=== PATIENT | male | born 1940 | race Caucasian/White ===

== ENCOUNTER → 2021-04-18 07:39 | Outpatient (CLI) | payer MEDICARE, BC, SELFPAY ==
--- NOTE | 2021-04-18 | DI.ECHO.S_ITS ---
[facility] +---------+ [facility] +---------+ : : [address] : [place] : : : : [id number] : : : : Phone: [phone]+ Echocardiogram Report + + :Name: JUANA FELDMAN Study Date: 04/18/2021 Height: 71 in : :[facility] ReadingLocation: Weight: 190 lb : : Gender: Male BSA: 2.1 m2 : :: 1940 Age: 80 yrs BP: 165/87 mmHg: :Reason For Study: ATHEROSCLEROTIC HEART DISEASE : :Ordering Physician: MARANDA THOMAS Performed By: Malgorzata Arguello : :Referring: MARANDA THOMAS : + + Interpretation Summary The left ventricle is normal in size. Left ventricular systolic function is normal. The ejection fraction is estimated to be 55-60%. There is possible anterolateral hypokinesis. Diastolic parameters suggest probable normal left ventricular diastolic function and normal filling pressures. The right ventricle is normal in size and function. Pulmonary artery pressures cannot be estimated because of the lack of a measurable TR jet velocity. The left atrium is moderately dilated. Right atrial size is normal. The aortic root is mildly dilated. The ascending aorta is moderate-severely enlarged. There is no significant valvular heart disease. Procedure: A two-dimensional transthoracic echocardiogram with color flow and Doppler was performed. The study quality was technically adequate. There is no prior echocardiogram noted for this patient. The patient was in sinus bradycardia with heart rates between 50-62 bpm during the exam. Left Ventricle: The left ventricle is normal in size. There is mild concentric left ventricular hypertrophy. Left ventricular systolic function is normal. The ejection fraction is estimated to be 55-60%. There is possible anterolateral hypokinesis. Diastolic parameters suggest probable normal left ventricular diastolic function and normal filling pressures. Right Ventricle: The right ventricle is normal in size and function. Atria: The left atrium is moderately dilated. Right atrial size is normal. There is no Doppler evidence for an interatrial shunt. Mitral Valve: The mitral valve leaflets appear mildly thickened, but open well. There is trace mitral regurgitation. Aortic Valve: The aortic valve is trileaflet. The aortic valve opens well. There is no aortic valve stenosis. No aortic regurgitation is present. Tricuspid Valve: The tricuspid valve is normal in structure and function. There is trace tricuspid regurgitation. Pulmonary artery pressures cannot be estimated because of the lack of a measurable TR jet velocity. Pulmonic Valve: The pulmonic valve is not well visualized. There is no pulmonic valvular regurgitation. There is no significant valvular heart disease. Great Vessels: The aortic root is mildly dilated. The ascending aorta is moderate-severely enlarged. The inferior vena cava was not visualized. Pericardium/ Pleura There is no pericardial effusion. There is no pleural effusion. MMode/2D Measurements & Calculations LVIDd: 4.7 cm LVOT diam: 2.3 cm LVIDs: 3.0 cm Ao root diam: 4.1 cm FS: 37.1 % asc Aorta Diam: 4.9 cm IVSd: 1.3 cm Ao Arch Diam (Prox Trans): 2.7 cm LVPWd: 1.2 cm LV dozier. diameter/BSA (cm/m^2): 2.3 LV sys. diameter/BSA (cm/m^2): 1.4 LA A2 area: 25.3 cm2 RA long axis: 5.2 cm LA A4 area: 19.3 cm2 RA area: 19.0 cm2 LA length (vol): 4.9 cm RA vol: 58.9 ml LA vol: 84.5 ml RA : 28.5 ml/m2 LA vol index: 41.0 ml/m2 RVD1 (basal): 3.6 cm TAPSE: 2.4 cm Doppler Measurements & Calculations Ao V2 max: 132.2 cm/sec LVOT Max Bala: 113.1 cm/sec Ao V2 mean: 85.0 cm/sec LV V1 max P.1 mmHg Ao max P.0 mmHg LV V1 VTI: 26.0 cm Ao mean P.5 mmHg TRACEY(I,D): 4.1 cm2 Ao V2 VTI: 27.2 cm TRACEY(V,D): 3.6 cm2 sev ratio: 0.96 TRACEY indexed to BSA (cm^2/m^2): 2.0 MV E max bala: 80.8 cm/sec PA V2 max: 83.3 cm/sec MV A max bala: 68.9 cm/sec PA V2 mean: 58.8 cm/sec MV E/A: 1.2 PA mean P.5 mmHg Med Peak E' Bala: 6.2 cm/sec PA pr(Accel): 19.1 mmHg E/E' med: 12.9 Lat Peak E' Bala: 6.4 cm/sec E/E' lat: 12.6 E/e' average: 12.8 MV dec time: 0.27 sec SV(LVOT): 110.8 ml Reading Physician:04:12 PM
== END ==
PROVIDERS: PCP Family Medicine; Referring Provider Family Medicine; Visit Provider Family Medicine
DX: I77.810 Thoracic aortic ectasia (principal); I77.89 Other specified disorders of arteries and arterioles; I25.10 Atherosclerotic heart disease of native coronary artery without angina pectoris; I10 Essential (primary) hypertension
CPT/HCPCS: 93306

== ENCOUNTER → 2021-11-14 11:10 | Outpatient (CLI) | payer MEDICARE, BC, SELFPAY ==
[2021-11-14 12:29] LABS: Alanine Aminotransferase 14 IU/L (<50); Albumin Globulin Ratio 1.5 (1.0-2.8); Alkaline Phosphatase 77 U/L (38-126); Aspartate Aminotransferase 26 IU/L (17-59); Bilirubin Total 0.8 mg/dL (0.2-1.3); Blood Urea Nitrogen 18 mg/dL (9-20); Calcium 9.5 mg/dL (8.4-10.2); Carbon Dioxide 30 mmol/L (22-32); Chloride 105 mmol/L (98-107); Cholesterol 174 mg/dL (140-199); Estimated Glomerular Filt Rate > 60.0 mL/min (>60); Globulin 2.6 g/dL (1.7-4.1); Glucose 91 mg/dL (80-110); HDL Cholesterol 57 mg/dL (40-60); HEMOLYSIS < 15 (0-50); LDL Cholesterol Calculated 104 mg/dL (<100); Potassium 4.3 mmol/L (3.4-5.1); Sodium 139 mmol/L (137-145); Total Protein 6.6 g/dL (6.3-8.2); Triglycerides 67 mg/dL (35-150)
== END ==
PROVIDERS: PCP Internal Medicine; Referring Provider Internal Medicine; Visit Provider Internal Medicine
DX: I10 Essential (primary) hypertension (principal); E78.2 Mixed hyperlipidemia
CPT/HCPCS: 36415; 80053; 80061

== ENCOUNTER → 2022-04-09 12:48 | Outpatient (CLI) | payer MEDICARE, BC, SELFPAY ==
--- NOTE | 2022-04-09 12:49 | DI.ECHO.S_ITS ---
[facility] +---------+ Hospital +---------+ : : [address] : [place] : : : : [id number] : : : : Phone: [phone] +---------+ Echocardiogram Report + + :Name: JUANA FELDMAN Study Date: 04/09/2022 Height: 73 in : :[facility] ReadingLocation: Weight: 181 lb : : Gender: Male BSA: 2.1 m2 : :: 1940 Age: 81 yrs BP: 194/95 mmHg: :Reason For Study: Aortic, Ascending Aneurysm : :Ordering Physician: ALLYSSA, : :KATE Brewster Performed By: Dre Lopez : :Referring: KATE SPIVEY : + + Interpretation Summary 1) Normal left ventricular thickness, size, wall motion, and systolic function (EF 55-60%). 2) Normal right ventricular size and function. 3) No significant valvular abnormalities. 4) The ascending aorta is moderately enlarged at 4.7cm. 5) Severe hypertension present during the study (BP 194/95mmHg). 6) Compared to the Echo done 04/18/2021, no significant change. Procedure: A two-dimensional transthoracic echocardiogram with color flow and Doppler was performed. The study quality was technically adequate. Comparison is made with the echocardiogram of 04/18/2021. Left Ventricle: The left ventricle is normal in size and wall thickness. Left ventricular systolic function is normal. The ejection fraction is estimated to be 55-60%. There are no focal wall motion abnormalities. Diastolic parameters suggest a pseudonormalization pattern, consistent with probable elevated filling pressures. Right Ventricle: The right ventricle is normal in size and function. Atria: The left atrium is moderately dilated. Right atrial size is normal. The interatrial septum grossly appears intact with no obvious evidence for an atrial septal defect. Mitral Valve: The mitral valve leaflets appear mildly thickened, but open well. There is mild mitral regurgitation. Aortic Valve: There is mild aortic valve sclerosis. There is no aortic valve stenosis. No aortic regurgitation is present. Tricuspid Valve: The tricuspid valve is normal in structure and function. There is trace tricuspid regurgitation. The right ventricular systolic pressure is estimated to be at least 24 mmHg based on an estimated right atrial pressure of 3 mm Hg. Pulmonic Valve: The pulmonic valve is not well seen, but is grossly normal. There is no pulmonic valvular regurgitation. Great Vessels: The aortic root is mildly dilated. The ascending aorta is moderately enlarged. asc Aorta Diam: 4.7 cm. The IVC is of normal diameter and collapses greater than 50% with a sniff. This suggests a low right atrial pressure of 3 mm Hg. Pericardium/ Pleura There is no pericardial effusion. There is no pleural effusion. MMode/2D Measurements & Calculations LVIDd: 5.5 cm LVOT diam: 2.3 cm LVIDs: 3.5 cm Ao root diam: 4.2 cm FS: 36.4 % asc Aorta Diam: 4.7 cm IVSd: 1.0 cm LVPWd: 1.0 cm LV dozier. diameter/BSA (cm/m^2): 2.7 LV sys. diameter/BSA (cm/m^2): 1.7 LA dimension: 3.9 cm RA long axis: 5.1 cm LA A2 area: 20.9 cm2 IVC diam: 1.8 cm LA A4 area: 21.1 cm2 LA length (vol): 5.4 cm LA vol: 69.3 ml LA vol index: 33.6 ml/m2 TAPSE_phl: 2.7 cm Doppler Measurements & Calculations Ao V2 max: 106.0 cm/sec LVOT Max Bala: 97.3 cm/sec Ao V2 mean: 74.8 cm/sec LV V1 max P.8 mmHg Ao max P.0 mmHg LV V1 VTI: 20.8 cm Ao mean P.0 mmHg TRACEY(I,D): 3.7 cm2 Ao V2 VTI: 23.6 cm TRACEY(V,D): 3.8 cm2 sev ratio: 0.88 TRACEY indexed to BSA (cm^2/m^2): 1.8 MV E max bala: 81.0 cm/sec TR max bala: 227.0 cm/sec MV A max bala: 63.4 cm/sec TR max P.6 mmHg MV E/A: 1.3 Med Peak E' Bala: 4.7 cm/sec E/E' med: 17.1 Lat Peak E' Bala: 5.2 cm/sec E/E' lat: 15.5 E/e' average: 16.3 MV dec time: 0.26 sec SV(LVOT): 86.4 ml AV VR_phl: 0.92 TRACEY(VTI)/BSA_phl: 1.8 MV P1/2t-pr_phl: 77.0 msec Reading Physician:02:37 PM
== END ==
PROVIDERS: PCP Internal Medicine; Referring Provider Internal Medicine; Visit Provider Internal Medicine
DX: I34.0 Nonrheumatic mitral (valve) insufficiency (principal); I71.2 Thoracic aortic aneurysm, without rupture
CPT/HCPCS: 93306

== ENCOUNTER → 2022-06-26 09:24 | Outpatient (CLI) | payer MEDICARE, BC, SELFPAY ==
[2022-06-26 11:56] LABS: Alanine Aminotransferase 12 IU/L (<50); Albumin 3.8 g/dL (3.5-5.0); Albumin Globulin Ratio 1.3 (1.0-2.8); Alkaline Phosphatase 56 U/L (38-126); Aspartate Aminotransferase 31 IU/L (17-59); Bilirubin Total 1.2 mg/dL (0.2-1.3); Blood Urea Nitrogen 17 mg/dL (9-20); Calcium 8.5 mg/dL (8.4-10.2); Carbon Dioxide 26 mmol/L (22-32); Chloride 106 mmol/L (98-107); Cholesterol 169 mg/dL (140-199); Estimated Glomerular Filt Rate > 60 mL/min (>60); Glucose 97 mg/dL (80-110); HDL Cholesterol 46 mg/dL (40-60); LDL Cholesterol Calculated 109 mg/dL (<100); Potassium 4.3 mmol/L (3.4-5.1); Sodium 137 mmol/L (137-145); Total Protein 6.8 g/dL (6.3-8.2); Triglycerides 70 mg/dL (35-150)
[2022-06-26 11:59] LABS: HEMOLYSIS 87 (0-50)
== END ==
PROVIDERS: PCP Internal Medicine; Referring Provider Internal Medicine; Visit Provider Internal Medicine
DX: E78.2 Mixed hyperlipidemia (principal); I10 Essential (primary) hypertension; I25.10 Atherosclerotic heart disease of native coronary artery without angina pectoris
CPT/HCPCS: 36415; 80053; 80061

== ENCOUNTER → 2022-10-02 14:09 | Outpatient (CLI) | payer MEDICARE, BC, SELFPAY ==
[2022-10-02 14:32] LABS: COVID19 -Nasal RAPID POSITIVE (Negative)
== END ==
PROVIDERS: PCP Internal Medicine; Visit Provider Registered Nurse
DX: U07.1 COVID-19 (principal)
CPT/HCPCS: 87635

== ENCOUNTER → 2023-02-07 15:31 | Outpatient (CLI) | payer MEDICARE, BC, SELFPAY ==
[2023-02-07 16:48] LABS: Alanine Aminotransferase 17 IU/L (<50); Albumin 3.8 g/dL (3.5-5.0); Albumin Globulin Ratio 1.4 (1.0-2.8); Alkaline Phosphatase 80 U/L (38-126); Aspartate Aminotransferase 26 IU/L (17-59); BUN Creatinine Ratio 20.5 (6-22); Bilirubin Total 0.9 mg/dL (0.2-1.3); Blood Urea Nitrogen 15 mg/dL (9-20); Carbon Dioxide 30 mmol/L (22-32); Chloride 101 mmol/L (98-107); Cholesterol 203 mg/dL (140-199); Estimated Glomerular Filt Rate > 60 mL/min (>60); Globulin 2.8 g/dL (1.7-4.1); Glucose 85 mg/dL (80-110); HDL Cholesterol 61 mg/dL (40-60); HEMOLYSIS < 15 (0-50); LDL Cholesterol Calculated 127 mg/dL (<100); Potassium 4.2 mmol/L (3.4-5.1); Sodium 138 mmol/L (137-145); Total Protein 6.6 g/dL (6.3-8.2); Triglycerides 76 mg/dL (35-150)
== END ==
PROVIDERS: PCP Internal Medicine; Referring Provider Internal Medicine; Visit Provider Internal Medicine
DX: E78.2 Mixed hyperlipidemia (principal); I10 Essential (primary) hypertension
CPT/HCPCS: 36415; 80053; 80061

== ENCOUNTER 2023-03-22 16:07 | Emergency (ER) | payer MEDICARE, BC, SELFPAY ==
[2023-03-22 16:03] VITALS: BP 158/69; PULSE 84; RESP 20; TEMP 37.1; O2SAT 98; BMI 25.7
--- NOTE | 2023-03-22 16:14 | DI.RAD.S_ITS ---
PROCEDURE: XR HIP W PEL IF DONE LT 2V INDICATIONS: fall TECHNIQUE: AP pelvis with lateral view(s) of the left hip(s). COMPARISON: None. FINDINGS: Bones: No fractures or dislocations. Pelvic ring appears intact. No suspicious bony lesions. Mild bilateral hip degenerative change, left greater than right. Soft tissues: The visualized bowel gas pattern is normal. No suspicious soft tissue calcifications. IMPRESSION: Mild bilateral hip degenerative change. No evidence acute bony abnormality. If clinical suspicion and/or symptoms persist, further assessment with repeat plain films, or advanced imaging (e.g., CT, MRI, or bone scan) may be helpful for further assessment. Dictated by: Jay Jay Fermin M.D. on 03/22/2023 at 16:46 Approved by: Jay Jay Fermin M.D. on 03/22/2023 at 16:47
--- NOTE | 2023-03-22 17:35 | PC.NURSE ---
Patient reports he fell onto left hip from kneeling position 3 days ago. Uses a cane normally to get around. He was ambulatory immediately after fall but has since been unable to bear weight since this morning. Lives on [place] sailboat at [facility] and was calling our for help today when boat neighbor heard him. Kedar [phone]. He has no family living in the area and no one to help him where he lives on the sailboat.
--- NOTE | 2023-03-22 17:38 | ED.LOWEXIN ---
HPI - Extremity Injury (Lower) <Daiana Gray PA-C - Last Filed: 03/22/23 19:59> General Chief Complaint: Extremity Injury, Lower Stated Complaint: fall 3 [place], Can't walk Time Seen by Provider: 03/22/23 17:37 Source: patient and EMS Mode of arrival: EMS History of Present Illness HPI Narrative: Patient is an 82-year-old male reporting for evaluation of left lateral hip pain. He states that while kneeling he felt the left against a sharply edge board. He states after that he was able to get up and walk around without any issue. He states that for the next 2 days, he was able to walk all around without issue. He states that yesterday he started to limp then today 3 days after the original incident, he has been unable to bear weight on his left leg. He lives by himself on a sailboat in [facility]. His boat neighbor took him to the ED today. he denies any numbness down his left foot. He reports that he is able to flex his left hip and extend his left hip with some pain. He states he is able to flex and extend his left knee without any issue. He states the most severe pain he experiences is with direct downward pressure from standing on his left leg. Related Data Home Medications Medication Instructions Recorded Confirmed Vitamin B12 1 tab PO DAILY 11/14/21 02/07/23 cholecalciferol (vitamin D3) 50 50 mcg PO DAILY 11/14/21 02/07/23 mcg (2,000 unit) capsule aspirin 81 mg tablet,delayed 81 mg PO DAILY See below 06/26/22 02/07/23 release Allergies Allergy/AdvReac Type Severity Reaction Status Date / Time No Known Drug Allergies Allergy Verified 02/07/23 14:48 Review of Systems <Daiana Gray PA-C - Last Filed: 03/22/23 19:59> Review of Systems Narrative: per HPI Patient History <Daiana Gray PA-C - Last Filed: 03/22/23 19:59> Medical History Ascending aorta dilatation Coronary artery disease (~2011) COVID-19 (~09/2022) Essential hypertension Mixed hyperlipidemia Surgical History S/P right knee surgery S/P tonsillectomy and adenoidectomy Social History marital status: details: 1977 shivam/zoroastrian: None Smoking Status: Never smoker (Smoked a pipe when he was in the [employer] for 4 years.) Smoking Status: Never smoker (Smoked a pipe when he was in the [employer] for 4 years.) Exam <Daiana Gray PA-C - Last Filed: 03/22/23 19:59> Initial Vital Signs Initial Vital Signs: Vital Signs Temperature 98.8 F 03/22/23 16:03 Pulse Rate 84 03/22/23 16:03 Respiratory Rate 20 03/22/23 16:03 Blood Pressure 158/69 H 03/22/23 16:03 Pulse Oximetry 98 03/22/23 16:03 Oxygen Delivery Method Room Air 03/22/23 16:03 GENERAL: 82 year old patient appears stated age. Well-developed patient, in no acute distress. HEAD: Atraumatic. Normocephalic. EYES: Pupils equal round. No scleral icterus. No injection or drainage. NECK: Trachea midline. Non tender. No cervical lymphadenopathy CARDIOVASCULAR: Regular rate and rhythm without murmurs, gallops, or rubs. RESPIRATORY: Clear to auscultation. Breath sounds equal bilaterally. No wheezes, rales, or rhonchi. EXTREMITIES: Some mild Edema palpated over left lateral hip. Tender to palpation over edema. No bruising or skin color change noted. No step-offs palpated. No internal or external rotation abnormality in resting position of left leg. NEURO: AOx3. SKIN: No rash or erythema of visible areas <Ayesha Keller DO - Last Filed: 03/23/23 06:03> Initial Vital Signs Initial Vital Signs: Vital Signs Temperature 98.8 F 03/22/23 16:03 Pulse Rate 84 03/22/23 16:03 Respiratory Rate 20 03/22/23 16:03 Blood Pressure 158/69 H 03/22/23 16:03 Pulse Oximetry 98 03/22/23 16:03 Oxygen Delivery Method Room Air 03/22/23 16:03 Course <Daiana Gray PA-C - Last Filed: 03/22/23 19:59> Orders Ordered: Discontinued Medications Ibuprofen (Ibuprofen 400 Mg Tablet) 400 mg PO NOW ONE Stop: 03/22/23 19:47 Ibuprofen (Ibuprofen 400 Mg Tablet) 400 mg PO Q8HR PRN PRN Reason: Pain, Mild (1-3) Ibuprofen (Ibuprofen 400 Mg Tablet) 800 mg PO NOW ONE Stop: 03/22/23 20:03 Last Admin: 03/22/23 20:11 Dose: 800 mg Documented By: MAU Ketorolac Tromethamine (Ketorolac 30 Mg/Ml Vial) 30 mg IM NOW ONE Stop: 03/22/23 17:56 Last Admin: 03/22/23 18:02 Dose: 30 mg Documented By: ELIAS Vital Signs Vital signs: Vital Signs - 8 hr 03/22/23 16:03 Temperature 98.8 F Pulse Rate 84 Respiratory Rate 20 Blood Pressure 158/69 H Pulse Oximetry 98 Oxygen Delivery Method Room Air <Ayesha Keller DO - Last Filed: 03/23/23 06:03> Orders Ordered: Discontinued Medications Ibuprofen (Ibuprofen 400 Mg Tablet) 400 mg PO NOW ONE Stop: 03/22/23 19:47 Ibuprofen (Ibuprofen 400 Mg Tablet) 400 mg PO Q8HR PRN PRN Reason: Pain, Mild (1-3) Ibuprofen (Ibuprofen 400 Mg Tablet) 800 mg PO NOW ONE Stop: 03/22/23 20:03 Last Admin: 03/22/23 20:11 Dose: 800 mg Documented By: MAU Ketorolac Tromethamine (Ketorolac 30 Mg/Ml Vial) 30 mg IM NOW ONE Stop: 03/22/23 17:56 Last Admin: 03/22/23 18:02 Dose: 30 mg Documented By: ELIAS Vital Signs Vital signs: Vital Signs - 8 hr 03/22/23 16:03 Temperature 98.8 F Pulse Rate 84 Respiratory Rate 20 Blood Pressure 158/69 H Pulse Oximetry 98 Oxygen Delivery Method Room Air MDM - Extremity Injury (Lower) <Daiana Gray PA-C - Last Filed: 03/22/23 19:59> Imaging Data Hip x-ray: Radiologist's Impression: PROCEDURE:? XR HIP W PEL IF DONE LT 2V ? INDICATIONS:? fall ? TECHNIQUE:? AP pelvis with lateral view(s) of the left hip(s).? ? COMPARISON:? None. ? FINDINGS:? ? Bones:? No fractures or dislocations.? Pelvic ring appears intact.? No suspicious bony lesions.? Mild bilateral hip degenerative change, left greater than right. ? Soft tissues:? The visualized bowel gas pattern is normal.? No suspicious soft tissue calcifications.? ? ? IMPRESSION:? Mild bilateral hip degenerative change. No evidence acute bony abnormality. ? If clinical suspicion and/or symptoms persist, further assessment with repeat plain films, or advanced imaging (e.g., CT, MRI, or bone scan) may be helpful for further assessment. ? ? ? Dictated by: Jay Jay Fermin M.D. on 03/22/2023 at 16:46 ? ? Approved by: Jay Jay Fermin M.D. on 03/22/2023 at 16:47 ? CT pelvis: Radiologist's Impression: PROCEDURE:? CT PEL WO CON ? INDICATIONS:? unable to bear weight left hip ? TECHNIQUE:? Noncontrast 3 mm axial sections acquired through the bony pelvis, with coronal and sagittal reformatting.? ? COMPARISON:? [facility], CR, XR HIP W PEL IF DONE LT 2V, 03/22/2023, 16:27. ? FINDINGS:? Image quality:? Excellent.? ? Bones:? No fracture.? No osseous lesion.? Periarticular osteophyte formation at the bilateral hip joints. ? Soft tissues:? Visualized bowel loops and vasculature within normal limits. ? ? IMPRESSION:? No fracture.? If symptoms persist, MRI could be performed for further assessment, if clinically indicated. ? ? Dictated by: Rosa Elena Montes M.D. on 03/22/2023 at 18:51 ? ? Approved by: Rosa Elena Montes M.D. on 03/22/2023 at 18:53 ? MDM Narrative Medical decision making narrative: CC: This is a new problem, uncertain diagnosis possible systemic effects Complicating co-morbidities: High blood pressure, hyperlipidemia. Data collected from: patient, Social determinants of health that may influence the patients condition: Patient lives at home alone on a boat with no family nearby Differential considered: Hip fracture, hematoma Exam documented above, pertinent findings include: Palpable swelling over left hip, no bruising or ecchymosis noted, 2+ left posterior tibialis pulse, good strength with hip flexion extension and knee flexion and extension and minimal pain. Significant pain with load bearing weight on left leg while straight. Imaging studies independently reviewed: See above Consultations: Discussed case with Dr. Keller Treatments: Toradol 30 mg Re-evaluations: Increased ability to stand after Toradol treatment. Describes less pain in left hip. Discussion: Discussed with patient that symptoms seem consistent with hematoma of left hip. Imaging with x-ray and CT pelvis do not show sign pelvic fracture or hip fracture. Recommend continued conservative care with NSAIDs starting tomorrow, ice and gentle wyvyl-gi-[id number] exercises. I recommend that he follow up with his primary care provider for further evaluation especially if left hip discomfort does not improve. Advised him to return to the emergency department if pain worsens or he continues to be unable to bear weight on his left hip despite conservative management. Disposition: see below, along with detailed discharge instructions that have been reviewed with patient as well as indications for ED re-evaluation and additional outpatient follow up Discharge Plan Departure Patient Disposition: Home Clinical Impression: Hematoma Activity Restrictions/Additional Instructions: Discussed with patient that CT of pelvis and hip x-ray did not show sign of fracture. Recommend treatment with ibuprofen starting tomorrow since he received Toradol today along with ice and gentle [id number]-pn-vaovuv exercises as tolerated. Please follow up with her primary care physician if symptoms are not improving. Please follow up in the emergency department if you continue to have difficulty ambulating despite conservative treatment or if pain worsens. Prescriptions: No Action Vitamin B12 500 mcg 1 tab PO DAILY cholecalciferol (vitamin D3) 50 mcg (2,000 unit) capsule 50 mcg PO DAILY aspirin 81 mg tablet,delayed release (DR/EC) 81 mg PO DAILY Patient Comments: Originally I believe it was precautionary related to family history? father and 2 older brothers pursuant to [place]. Referrals: Jesus Domínguez MD [Primary Care Provider] - Stand Alone Forms: Patient Portal/API <Ayesha Keller DO - Last Filed: 03/23/23 06:03> Cosign ED Attending Coseliotature Attestation: I was immediately available in the department for consultation. Documentation has been reviewed.
[2023-03-22] MEDS: KETOROLAC 30 MG/ML VIAL IM (18:02)
--- NOTE | 2023-03-22 18:22 | DI.CT.S_ITS ---
PROCEDURE: CT PEL WO CON INDICATIONS: unable to bear weight left hip TECHNIQUE: Noncontrast 3 mm axial sections acquired through the bony pelvis, with coronal and sagittal reformatting. COMPARISON: [facility], CR, XR HIP W PEL IF DONE LT 2V, 03/22/2023, 16:27. FINDINGS: Image quality: Excellent. Bones: No fracture. No osseous lesion. Periarticular osteophyte formation at the bilateral hip joints. Soft tissues: Visualized bowel loops and vasculature within normal limits. IMPRESSION: No fracture. If symptoms persist, MRI could be performed for further assessment, if clinically indicated. Dictated by: Rosa Elena Montes M.D. on 03/22/2023 at 18:51 Approved by: Rosa Elena Montes M.D. on 03/22/2023 at 18:53
[2023-03-22 20:00] VITALS: BP 140/65; PULSE 65; RESP 18; O2SAT 99
[2023-03-22] MEDS: IBUPROFEN 400 MG TABLET 800 MG PO (20:11)
== END 2023-03-22 20:21 | disposition home or self-care (01) ==
PROVIDERS: Emergency Provider Physician Assistant; PCP Internal Medicine
DX: S70.02XA Contusion of left hip, initial encounter (principal); W18.30XA Fall on same level, unspecified, initial encounter
CPT/HCPCS: 72192; 73502; 96372; 99283; 99284; J1885

== ENCOUNTER → 2023-04-10 12:39 | Outpatient (CLI) | payer MEDICARE, BC, SELFPAY ==
--- NOTE | 2023-04-10 12:40 | DI.ECHO.S_ITS ---
[place] +---------+ [facility] +---------+ : : [address] : : : : [id number] : : : : Phone: [phone] +---------+ Echocardiogram Report + + :Name: JUANA FELDMAN Study Date: 04/10/2023 Height: 71 in : :[facility] ReadingLocation: Weight: 185 lb : : Gender: Male BSA: 2.0 m2 : :: 1940 Age: 82 yrs BP: 169/82 mmHg: :Reason For Study: ASCENDING AORTA ANEURYSM : :Ordering Physician: ALLYSSA, : :KATE Brewster Performed By: Malgorzata Arguello : :Referring: KATE SPIVEY : + + Interpretation Summary The patient was in sinus bradycardia with heart rates between 46-52 bpm during the exam. The ejection fraction is estimated to be 55-60%. Diastolic function could not be accurately assessed due to contradictory data. The left atrium is moderately dilated. The right ventricle is normal in size and function. There is mild mitral regurgitation. There is mild aortic regurgitation. There is mild tricuspid regurgitation. Right ventricular systolic pressure is estimated to be 25 mmHg plus the clinically estimated CVP which cannot be estimated on this exam. The ascending aorta is moderately enlarged, 4.8 cm. Compared to the prior study dated 04/09/2022, the ascending aorta measures 1 mm larger however when compared to the prior study from 04/18/2021, it now measures 1 mm smaller. Overall, no significant change. Procedure: A two-dimensional transthoracic echocardiogram with color flow and Doppler was performed. The study quality was technically adequate. Comparison is made with the echocardiogram of 04/09/2022. The patient was in sinus bradycardia with heart rates between 46-52 bpm during the exam. Left Ventricle: The left ventricle is normal in size and wall thickness. The ejection fraction is estimated to be 55-60%. Diastolic function could not be accurately assessed due to contradictory data. Right Ventricle: The right ventricle is normal in size and function. Atria: The left atrium is moderately dilated. Right atrial size is normal. There is no Doppler evidence for an interatrial shunt. Mitral Valve: The mitral valve leaflets appear mildly thickened, but open well. There is mild mitral regurgitation. Aortic Valve: The aortic valve is trileaflet. The aortic valve opens well. There is no aortic valve stenosis. There is mild aortic regurgitation. Tricuspid Valve: The tricuspid valve is normal in structure and function. There is mild tricuspid regurgitation. Right ventricular systolic pressure is estimated to be 25 mmHg plus the clinically estimated CVP which cannot be estimated on this exam. Pulmonic Valve: The pulmonic valve is not well seen, but is grossly normal. There is no pulmonic valvular regurgitation. Great Vessels: The aortic root is moderately dilated. The ascending aorta is moderately enlarged. The inferior vena cava was not well visualized. Pericardium/ Pleura There is no pericardial effusion. There is no pleural effusion. MMode/2D Measurements & Calculations LVIDd: 5.6 cm LVOT diam: 2.3 cm LVIDs: 3.7 cm Ao root diam: 4.6 cm FS: 33.5 % asc Aorta Diam: 4.8 cm EPSS: 0.87 cm Ao Arch Diam (Prox Trans): 3.3 cm IVSd: 0.91 cm LVPWd: 0.95 cm LV dozier. diameter/BSA (cm/m^2): 2.7 LV sys. diameter/BSA (cm/m^2): 1.8 LA A2 area: 27.3 cm2 RA long axis: 5.0 cm LA A4 area: 22.7 cm2 RA area: 14.8 cm2 LA length (vol): 5.2 cm RA vol: 37.5 ml LA vol: 101.0 ml RA : 18.4 ml/m2 LA vol index: 49.5 ml/m2 RVD1 (basal): 3.2 cm RVD2 (mid): 3.3 cm TAPSE: 2.1 cm Doppler Measurements & Calculations Ao V2 max: 107.2 cm/sec LVOT Max Bala: 110.6 cm/sec Ao V2 mean: 83.7 cm/sec LV V1 max P.9 mmHg Ao max P.6 mmHg LV V1 VTI: 23.1 cm Ao mean P.0 mmHg TRACEY(I,D): 3.3 cm2 Ao V2 VTI: 29.0 cm TRACEY(V,D): 4.2 cm2 sev ratio: 0.80 TRACEY indexed to BSA (cm^2/m^2): 1.6 MV E max bala: 77.7 cm/sec TR max bala: 251.0 cm/sec MV A max bala: 58.7 cm/sec TR max P.2 mmHg MV E/A: 1.3 PA V2 max: 85.6 cm/sec Med Peak E' Bala: 5.9 cm/sec PA V2 mean: 62.2 cm/sec E/E' med: 13.1 PA mean P.7 mmHg Lat Peak E' Bala: 5.6 cm/sec PA pr(Accel): 29.3 mmHg E/E' lat: 13.9 E/e' average: 13.5 MV dec time: 0.26 sec SV(LVOT): 94.6 ml Reading Physician:03:04 PM
== END ==
PROVIDERS: PCP Internal Medicine; Referring Provider Internal Medicine; Visit Provider Internal Medicine
DX: I77.810 Thoracic aortic ectasia (principal); I08.3 Combined rheumatic disorders of mitral, aortic and tricuspid valves; I77.89 Other specified disorders of arteries and arterioles
CPT/HCPCS: 93306

== ENCOUNTER 2023-05-09 08:57 | Emergency (ER) | payer MEDICARE, BC, SELFPAY ==
[2023-05-09 09:00] VITALS: BP 183/81; PULSE 60; RESP 15; TEMP 36.4; O2SAT 98
[2023-05-09] MEDS: TET,DIPH,PERTUSS(ACELL),VAC/PF 0.5 ML SYRINGE IM (09:06)
--- NOTE | 2023-05-09 09:07 | PC.NURSE ---
Pt has a skin tear approx 5 inchest long with irregular edges. Pt already put skin flap back in place.
--- NOTE | 2023-05-09 09:09 | ED_ITS ---
HPI - Wound/Laceration General Chief Complaint: Wound/Laceration Stated Complaint: L/arm laceration Time Seen by Provider: 05/09/23 09:08 Source: patient Mode of arrival: Ambulatory Limitations: no limitations History of Present Illness HPI narrative: This is a 82-year-old male with complaint of left arm laceration 2 days ago. Patient was climbing down a ladder and developed a skin tear. Patient states he flap the skin over. He states it has been starting to heal. Tetanus is not up-to-date. He is no other complaints. He states no redness, warmth or drainage. He has a follow-up appointment with Dr. Domínguez over an actinic keratosis on his scalp. Related Data Home Medications Medication Instructions Recorded Confirmed Vitamin B12 1 tab PO DAILY 11/14/21 02/07/23 cholecalciferol (vitamin D3) 50 50 mcg PO DAILY 11/14/21 02/07/23 mcg (2,000 unit) capsule aspirin 81 mg tablet,delayed 81 mg PO DAILY See below 06/26/22 02/07/23 release Allergies Allergy/AdvReac Type Severity Reaction Status Date / Time No Known Drug Allergies Allergy Verified 05/09/23 09:00 Review of Systems Review of Systems ROS Unobtainable: All systems reviewed & are unremarkable except as noted in HPI and below Patient History Medical History Ascending aorta dilatation Coronary artery disease (~2011) COVID-19 (~09/2022) Essential hypertension Mixed hyperlipidemia Surgical History S/P right knee surgery S/P tonsillectomy and adenoidectomy Social History marital status: details: 1977 shivam/hoahaoism: None Smoking Status: Never smoker Smoking Status: Never smoker alcohol intake frequency: 0-2 drinks per day Substance Use Type: does not use Exam Narrative Exam Narrative: GENERAL: Alert and oriented x three, well-nourished male in mild distress. HEENT: Head normocephalic, atraumatic, EOMI, pupils reactive, face symmetric, moist mucous membranes NECK: Supple, full range of motion EXTREMITIES: Normal range of motion, no clubbing or edema. Neurovascularly intact. Patient has 2 skin tears that are approximately 3-4 cm in length skin has been flapped back over and they are most completely approximated. Clean, dry and intact without any drainage. NEUROLOGICAL: Cranial nerves II through XII grossly intact. Moving all extremities SKIN: Warm, dry, no petechiae, no rashes or lesions otherwise noted. Patient does have a Band-Aid over the actinic keratosis on his scalp. Initial Vital Signs Initial Vital Signs: Vital Signs Temperature 97.6 F 05/09/23 09:00 Pulse Rate 60 05/09/23 09:00 Respiratory Rate 15 05/09/23 09:00 Blood Pressure 183/81 H 05/09/23 09:00 Pulse Oximetry 98 05/09/23 09:00 Oxygen Delivery Method Room Air 05/09/23 09:00 Course Orders Ordered: Discontinued Medications Diphtheria/Tetanus/Acell Pertussis (Tet,Diph,Pertuss(Acell),Vac/Pf 0.5 Ml S yringe) 0.5 ml IM .ONCE ONE Stop: 05/09/23 09:04 Last Admin: 05/09/23 09:06 Dose: 0.5 ml Documented By: EPI Vital Signs Vital signs: Vital Signs - 8 hr 05/09/23 09:00 Temperature 97.6 F Pulse Rate 60 Respiratory Rate 15 Blood Pressure 183/81 H Pulse Oximetry 98 Oxygen Delivery Method Room Air MDM - Wound/Laceration MDM Narrative Medical decision making narrative: This is an 82-year-old male who presents with complaint of skin tear to his left arm which is 2-day-old. Area please refer to be clean dry and intact healing well. Area was cleansed by myself. Discussed with patient basic wound care, range her precautions and tetanus was updated. Discharge Plan Departure Patient Disposition: Home Clinical Impression: Skin tear of left forearm without complication Activity Restrictions/Additional Instructions: Wound Care: Keep wound(s) clean and dry. Wash daily with soap and water only. Do not use over the counter products (alcohol or peroxide)on the wounds unless instructed by a physician. You can use triple antibiotic ointment once daily to the affected area. If wound condition worsens (increased/expanding redness, developing fluid blisters, or worsening pain), either contact your doctor for an urgent re- assessment , or return to the Emergency Department. Return to the Emergency Department for any new or worsening symptoms. Return if fever greater than 100.4 Fahrenheit, increased swelling, increasing pain or worsening symptoms such as increased discharge or spreading redness. Prescriptions: No Action Vitamin B12 500 mcg 1 tab PO DAILY cholecalciferol (vitamin D3) 50 mcg (2,000 unit) capsule 50 mcg PO DAILY aspirin 81 mg tablet,delayed release (DR/EC) 81 mg PO DAILY Patient Comments: Originally I believe it was precautionary related to family history? father and 2 older brothers pursuant to [place]. Referrals: Jesus Domínguez MD [Primary Care Provider] - Stand Alone Forms: Patient Portal/API
== END 2023-05-09 09:29 | disposition home or self-care (01) ==
PROVIDERS: Emergency Provider Emergency Medicine; PCP Internal Medicine
DX: S41.112A Laceration without foreign body of left upper arm, initial encounter (principal); W26.9XXA Contact with unspecified sharp object(s), initial encounter; Z23 Encounter for immunization
CPT/HCPCS: 90471; 99283; 90715

== ENCOUNTER → 2024-04-16 06:36 | Outpatient (CLI) | payer MEDICARE, BC, SELFPAY ==
--- NOTE | 2024-04-16 06:39 | DI.ECHO.S_ITS ---
[facility] : : [address] : : [place] : : [id number] : : Phone: [phone] Echocardiogram Report + + :Name: JUANA FELDMAN Study Date: 04/16/2024 Height: 71 in : :[facility] ReadingLocation: Weight: 182 lb : : Gender: Male BSA: 2.0 m2 : :: 1940 Age: 83 yrs BP: 158/84 mmHg: :Reason For Study: DILATION OF ASCENDING AORTA : :Ordering Physician: ALLYSSA, : :KATE Brewster Performed By: Malgorzata Arguello : :Referring: KATE SPIVEY : + + Interpretation Summary 1) Mildly increased left ventricular thickness (concentric) with normal size, normal wall motion, and normal systoilc function (EF 55-60%). 2) Mildly enlarged right ventricle with low normal systolic function. 3) No significant valvular abnormalities. 4) The ascending aorta is moderately enlarged at 4.8cm. 5) Compared to the Echo done 04/10/2023, no significant change. Procedure: A two-dimensional transthoracic echocardiogram with color flow and Doppler was performed. The study quality was technically adequate. Comparison is made with the echocardiogram of 04/10/2023. The patient was in sinus bradycardia with heart rates between 53-63 bpm during the exam. Left Ventricle: The left ventricle is normal in size. There is mild concentric left ventricular hypertrophy. The ejection fraction is estimated to be 55-60%. Left ventricular systolic function appears normal without focal wall motion abnormalities. Diastolic parameters suggest a relaxation abnormality of the left ventricle, consistent with probable normal filling pressures. Right Ventricle: The right ventricle is mildly dilated. Right ventricular systolic function is at the lower limits of normal. Atria: The left atrium is moderately dilated. Right atrial size is normal. There is no Doppler evidence for an interatrial shunt. Mitral Valve: The mitral valve is normal in structure and function. There is trace mitral regurgitation. Aortic Valve: The aortic valve is trileaflet. The aortic valve opens well. There is no aortic valve stenosis. There is trace aortic regurgitation. Tricuspid Valve: The tricuspid valve is normal in structure and function. No tricuspid regurgitation. Pulmonic Valve: The pulmonic valve leaflets are thin and pliable; valve motion is normal. There is trace pulmonic regurgitation. Great Vessels: The aortic root is moderately dilated. The ascending aorta is moderately enlarged. The IVC is of normal diameter and collapses greater than 50% with a sniff. This suggests a low right atrial pressure of 3 mm Hg. Pericardium/ Pleura There is no pericardial effusion. There is no pleural effusion. MMode/2D Measurements & Calculations LVIDd: 5.3 cm LVOT diam: 2.4 cm LVIDs: 3.2 cm Ao root diam: 4.5 cm FS: 38.9 % asc Aorta Diam: 4.8 cm IVSd: 1.1 cm LVPWd: 1.2 cm LV dozier. diameter/BSA (cm/m^2): 2.6 LV sys. diameter/BSA (cm/m^2): 1.6 LA A2 area: 25.9 cm2 RA long axis: 5.3 cm LA A4 area: 22.5 cm2 RA area: 17.9 cm2 LA length (vol): 5.2 cm RA vol: 50.8 ml LA vol: 95.1 ml RA : 25.1 ml/m2 LA vol index: 46.9 ml/m2 IVC diam: 1.6 cm RVD1 (basal): 4.4 cm TAPSE: 1.9 cm Doppler Measurements & Calculations Ao V2 max: 119.4 cm/sec LVOT Max Bala: 104.7 cm/sec Ao V2 mean: 90.2 cm/sec LV V1 max P.4 mmHg Ao max P.7 mmHg LV V1 VTI: 21.6 cm Ao mean P.5 mmHg TRACEY(I,D): 3.8 cm2 Ao V2 VTI: 25.1 cm TRACEY(V,D): 3.8 cm2 sev ratio: 0.86 TRACEY indexed to BSA (cm^2/m^2): 1.9 MV E max bala: 52.1 cm/sec PA V2 max: 86.0 cm/sec MV A max bala: 61.9 cm/sec PA V2 mean: 66.4 cm/sec MV E/A: 0.84 PA mean P.9 mmHg Med Peak E' Bala: 5.6 cm/sec PA pr(Accel): 32.8 mmHg E/E' med: 9.4 Lat Peak E' Bala: 5.7 cm/sec E/E' lat: 9.1 E/e' average: 9.2 MV dec time: 0.36 sec SV(LVOT): 94.1 ml Reading Physician:04:02 PM
== END ==
PROVIDERS: PCP Internal Medicine; Referring Provider Internal Medicine; Visit Provider Internal Medicine
DX: I77.810 Thoracic aortic ectasia (principal); I77.89 Other specified disorders of arteries and arterioles
CPT/HCPCS: 93306

== ENCOUNTER → 2024-04-21 09:49 | Outpatient (CLI) | payer MEDICARE, BC, SELFPAY ==
[2024-04-21 11:39] LABS: Alanine Aminotransferase 14 IU/L (<50); Albumin 3.9 g/dL (3.5-5.0); Albumin Globulin Ratio 1.5 (1.0-2.8); Alkaline Phosphatase 92 U/L (38-126); Aspartate Aminotransferase 27 IU/L (17-59); BUN Creatinine Ratio 25.7 (6-22); Bilirubin Total 0.8 mg/dL (0.2-1.3); Blood Urea Nitrogen 19 mg/dL (9-20); Carbon Dioxide 28 mmol/L (22-32); Chloride 106 mmol/L (98-107); Cholesterol 209 mg/dL (140-199); Estimated Glomerular Filt Rate > 60 mL/min (>60); Globulin 2.6 g/dL (1.7-4.1); Glucose 93 mg/dL (80-110); HDL Cholesterol 65 mg/dL (40-60); HEMOLYSIS < 15 (0-50); LDL Cholesterol Calculated 131 mg/dL (<100); Potassium 4.4 mmol/L (3.4-5.1); Sodium 139 mmol/L (137-145); Total Protein 6.5 g/dL (6.3-8.2); Triglycerides 64 mg/dL (35-150)
== END ==
PROVIDERS: PCP Internal Medicine; Referring Provider Internal Medicine; Visit Provider Internal Medicine
DX: I10 Essential (primary) hypertension (principal); E78.2 Mixed hyperlipidemia; I25.10 Atherosclerotic heart disease of native coronary artery without angina pectoris
CPT/HCPCS: 36415; 80053; 80061

== ENCOUNTER → 2024-07-30 11:00 | Outpatient (CLI) | payer MEDICARE, BC, SELFPAY ==
[2024-07-30 12:34] LABS: Alanine Aminotransferase 13 IU/L (<50); Albumin 3.8 g/dL (3.5-5.0); Albumin Globulin Ratio 1.5 (1.0-2.8); Alkaline Phosphatase 79 U/L (38-126); Aspartate Aminotransferase 27 IU/L (17-59); BUN Creatinine Ratio 23.5 (6-22); Blood Urea Nitrogen 19 mg/dL (9-20); Calcium 9.2 mg/dL (8.4-10.2); Carbon Dioxide 28 mmol/L (22-32); Chloride 105 mmol/L (98-107); Cholesterol 144 mg/dL (140-199); Estimated Glomerular Filt Rate > 60 mL/min (>60); Globulin 2.6 g/dL (1.7-4.1); Glucose 94 mg/dL (80-110); HDL Cholesterol 49 mg/dL (40-60); HEMOLYSIS < 15 (0-50); LDL Cholesterol Calculated 81 mg/dL (<100); Potassium 4.7 mmol/L (3.4-5.1); Sodium 139 mmol/L (137-145); Total Protein 6.4 g/dL (6.3-8.2); Triglycerides 68 mg/dL (35-150)
== END ==
PROVIDERS: PCP Internal Medicine; Referring Provider Internal Medicine; Visit Provider Internal Medicine
DX: E78.2 Mixed hyperlipidemia (principal)
CPT/HCPCS: 36415; 80053; 80061

== ENCOUNTER → 2025-03-29 09:06 | Outpatient (CLI) | payer MEDICARE, BC, SELFPAY ==
--- NOTE | 2025-03-29 09:07 | DI.ECHO.S_ITS ---
[facility]---------+ [facility] : : [address] : : [place] : : [id number] : : Phone: [phone] Echocardiogram Report + + :Name: JUANA FELDMAN Study Date: 03/29/2025 Height: 72 in : :[facility] ReadingLocation: Weight: 190 lb : : Gender: Male BSA: 2.1 m2 : :: 1940 Age: 84 yrs BP: 171/80 mmHg: :Reason For Study: AORTIC DILITATION : :Ordering Physician: ALLYSSA, : :KATE Brewster Performed By: Jimbo Kelsey : :Referring: KATE SPIVEY : + + Interpretation Summary The patient was in sinus bradycardia with heart rates between 50-60 bpm during the exam. The ejection fraction is estimated to be 55-60%. Grade II diastolic dysfunction. The left atrium is mildly dilated. The right ventricle is mildly dilated. The right ventricular systolic function is normal. Right ventricular systolic pressure is estimated to be 35 mmHg plus the clinically estimated CVP which cannot be estimated on this exam. The ascending aorta is moderately enlarged, 5.0 cm. Compared to the prior study 04/16/2024, has been a slight increase in the diameter of the ascending aorta. Procedure: A two-dimensional transthoracic echocardiogram with color flow and Doppler was performed. The study quality was technically good. Comparison is made with the echocardiogram of 04/16/2024. The patient was in sinus bradycardia with heart rates between 50-60 bpm during the exam. Left Ventricle: The left ventricle is normal in size. Left ventricular wall thickness is mildly increased. There is no ventricular septal defect visualized. The ejection fraction is estimated to be 55-60%. There are no focal wall motion abnormalities. Diastolic parameters suggest a pseudonormalization pattern, consistent with probable elevated filling pressures. Right Ventricle: The right ventricle is mildly dilated. The right ventricular systolic function is normal. Atria: The left atrium is mildly dilated. Right atrial size is normal. There is no Doppler evidence for an interatrial shunt. Mitral Valve: The mitral valve leaflets appear normal. There is no evidence of stenosis, fluttering, or prolapse. There is trace mitral regurgitation. Aortic Valve: The aortic valve is trileaflet. The aortic valve opens well. There is no aortic valve stenosis. There is trace aortic regurgitation. Tricuspid Valve: The tricuspid valve leaflets are thin and pliable. There is trace tricuspid regurgitation. Right ventricular systolic pressure is estimated to be 35 mmHg plus the clinically estimated CVP which cannot be estimated on this exam. Pulmonic Valve: The pulmonic valve is not well seen, but is grossly normal. There is no pulmonic valvular regurgitation. Great Vessels: The aortic root is mildly dilated. The ascending aorta is moderately enlarged. The pulmonary artery is normal size. The inferior vena cava was not visualized. Pericardium/ Pleura There is no pericardial effusion. MMode/2D Measurements & Calculations LVIDd: 5.3 cm LVOT diam: 2.3 cm LVIDs: 3.3 cm Ao root diam: 4.5 cm FS: 37.0 % asc Aorta Diam: 5.0 cm EPSS: 0.81 cm IVSd: 1.2 cm LVPWd: 1.2 cm LV dozier. diameter/BSA (cm/m^2): 2.5 LV sys. diameter/BSA (cm/m^2): 1.6 LA A2 area: 22.2 cm2 RA long axis: 5.5 cm LA A4 area: 24.3 cm2 RA area: 14.5 cm2 LA length (vol): 6.2 cm RA vol: 32.7 ml LA vol: 73.6 ml RA : 15.7 ml/m2 LA vol index: 35.3 ml/m2 RVD1 (basal): 4.1 cm RVD2 (mid): 3.5 cm TAPSE: 2.5 cm Doppler Measurements & Calculations Ao V2 max: 122.9 cm/sec LVOT Max Bala: 92.2 cm/sec Ao V2 mean: 92.5 cm/sec LV V1 max P.4 mmHg Ao max P.0 mmHg LV V1 VTI: 21.4 cm Ao mean P.7 mmHg TRACEY(I,D): 3.0 cm2 Ao V2 VTI: 28.9 cm TRACEY(V,D): 3.1 cm2 sev ratio: 0.74 TRACEY indexed to BSA (cm^2/m^2): 1.5 MV E max bala: 59.7 cm/sec TR max bala: 293.9 cm/sec MV A max bala: 67.9 cm/sec TR max P.6 mmHg MV E/A: 0.88 PA V2 max: 92.2 cm/sec Med Peak E' Bala: 4.6 cm/sec PA V2 mean: 68.1 cm/sec E/E' med: 12.9 PA mean P.0 mmHg Lat Peak E' Bala: 4.5 cm/sec PA pr(Accel): 44.7 mmHg E/E' lat: 13.4 E/e' average: 13.1 MV dec time: 0.28 sec SV(OT): 87.3 ml Reading Physician:12:31 PM
== END ==
PROVIDERS: PCP Internal Medicine; Referring Provider Internal Medicine; Visit Provider Internal Medicine
DX: I77.810 Thoracic aortic ectasia (principal); I77.89 Other specified disorders of arteries and arterioles; E78.2 Mixed hyperlipidemia; I10 Essential (primary) hypertension
CPT/HCPCS: 36415; 80053; 80061; 93306

== ENCOUNTER → 2025-03-29 09:59 | Outpatient (CLI) | payer MEDICARE, BC, SELFPAY ==
[2025-03-29 10:48] LABS: Alanine Aminotransferase 16 IU/L (<50); Albumin 3.9 g/dL (3.5-5.0); Albumin Globulin Ratio 1.6 (1.0-2.8); Alkaline Phosphatase 83 U/L (38-126); Aspartate Aminotransferase 27 IU/L (17-59); BUN Creatinine Ratio 28.7 (6-22); Bilirubin Total 1.2 mg/dL (0.2-1.3); Blood Urea Nitrogen 27 mg/dL (9-20); Calcium 9.1 mg/dL (8.4-10.2); Carbon Dioxide 27 mmol/L (22-32); Chloride 103 mmol/L (98-107); Cholesterol 140 mg/dL (140-199); Estimated Glomerular Filt Rate > 60 mL/min (>60); Globulin 2.4 g/dL (1.7-4.1); Glucose 91 mg/dL (70-99); HDL Cholesterol 57 mg/dL (40-60); HEMOLYSIS < 15 (0-50); LDL Cholesterol Calculated 67 mg/dL (<100); Potassium 4.3 mmol/L (3.4-5.1); Sodium 137 mmol/L (137-145); Total Protein 6.3 g/dL (6.3-8.2); Triglycerides 78 mg/dL (35-150)
== END ==
PROVIDERS: PCP Internal Medicine; Referring Provider Internal Medicine; Visit Provider Internal Medicine
DX: E78.2 Mixed hyperlipidemia (principal); I10 Essential (primary) hypertension
CPT/HCPCS: 36415; 80053; 80061